=== PATIENT | female | born 1970 | race Caucasian/White ===

== ENCOUNTER 2023-11-28 14:00 | Outpatient (RCR) | payer BC, SELFPAY ==
--- NOTE | 2023-11-11 10:22 | URNOTE ---
Alex ([id number]) has been approved, 200mg x 5 doses. 11/10/2023-05/08/2024 Ref #[id number]
[2023-11-18 13:41] VITALS: BP 129/85; PULSE 104; RESP 16; TEMP 37.2; O2SAT 93
[2023-11-18] MEDS: IRON SUCROSE COMPLEX 200 MG in 0.9 % SODIUM CHLORIDE 100 ml 400 MG IVPB (13:52)
[2023-11-18] MEDS: SODIUM CHLORIDE 0.9 % (FLUSH) 10 ML SYRINGE IVF (14:00)
[2023-11-18] MEDS: 0.9 % SODIUM CHLORIDE 250 ml IV (14:00)
[2023-11-18 14:23] VITALS: BP 110/77; PULSE 90; RESP 16; TEMP 37.6; O2SAT 94
[2023-11-18 15:04] VITALS: BP 130/86; PULSE 75; RESP 16; TEMP 36.1; O2SAT 99
[2023-11-20 13:00] VITALS: BP 122/75; PULSE 78; RESP 16; TEMP 36.8; O2SAT 98
[2023-11-20 13:54] VITALS: BP 110/73; PULSE 96; RESP 16; TEMP 36; O2SAT 91
[2023-11-20] MEDS: 0.9 % SODIUM CHLORIDE 250 ml IV (13:59)
[2023-11-20] MEDS: SODIUM CHLORIDE 0.9 % (FLUSH) 10 ML SYRINGE IVF (13:59)
[2023-11-20] MEDS: IRON SUCROSE COMPLEX 200 MG in 0.9 % SODIUM CHLORIDE 100 ml 440 MG IVPB (14:09)
[2023-11-20 14:31] VITALS: BP 117/72; PULSE 85; RESP 12; O2SAT 96
[2023-11-24 14:04] VITALS: BP 118/77; PULSE 80; RESP 16; TEMP 36.3; O2SAT 98
[2023-11-24] MEDS: SODIUM CHLORIDE 0.9 % (FLUSH) 10 ML SYRINGE IVF (14:41)
[2023-11-24] MEDS: IRON SUCROSE COMPLEX 200 MG in 0.9 % SODIUM CHLORIDE 100 ml 440 MG IVPB (14:41)
[2023-11-24] MEDS: 0.9 % SODIUM CHLORIDE 250 ml IV (14:41)
[2023-11-24 15:22] VITALS: BP 114/75; PULSE 71; RESP 16; TEMP 37.1; O2SAT 99
[2023-11-26 14:13] VITALS: BP 117/74; PULSE 98; RESP 16; TEMP 36.2; O2SAT 98
[2023-11-26] MEDS: IRON SUCROSE COMPLEX 200 MG in 0.9 % SODIUM CHLORIDE 100 ml 440 MG IVPB (14:35)
[2023-11-26] MEDS: SODIUM CHLORIDE 0.9 % (FLUSH) 10 ML SYRINGE IVF (14:35)
[2023-11-26] MEDS: 0.9 % SODIUM CHLORIDE 250 ml IV (14:35)
[2023-11-28 14:21] VITALS: BP 115/76; PULSE 84; RESP 16; TEMP 36.7; O2SAT 99
[2023-11-28] MEDS: SODIUM CHLORIDE 0.9 % (FLUSH) 10 ML SYRINGE IVF (14:30)
[2023-11-28] MEDS: IRON SUCROSE COMPLEX 200 MG in 0.9 % SODIUM CHLORIDE 100 ml 440 MG IVPB (14:30)
[2023-11-28] MEDS: 0.9 % SODIUM CHLORIDE 250 ml IV (14:30)
[2023-11-28 14:55] VITALS: BP 112/73
[2023-11-28 15:28] VITALS: BP 116/72; PULSE 73
== END 2024-05-16 23:59 | disposition home or self-care (01) ==
LOC: CCIC 14:00
PROVIDERS: PCP Family Medicine; Visit Provider Clinical Nurse Specialist
DX: D50.9 Iron deficiency anemia, unspecified (principal)
CPT/HCPCS: 96365; 96374; J1756; J7050

== ENCOUNTER 2024-07-17 16:25 | Emergency (ER) | payer BC, SELFPAY ==
[2024-07-17] VITALS (34 sets, daily range): BP systolic 102–144; BP diastolic 67–86; PULSE 59–89; RESP 0–28; TEMP 36.3; O2SAT 96–100; BMI 36.6
--- NOTE | 2024-07-17 16:54 | ED_ITS ---
HPI - General Adult General Date Seen: 07/17/24 Chief complaint: Unspecified Complaint, Adult Stated complaint: Medication reaction Time Seen by Provider: 07/17/24 16:46 History of Present Illness HPI narrative: 54 yo F presenting to the emergency department today for evaluation of chest tightness, shortness of breath, nausea, and chest pain. She has no known history of coronary disease. She does have history of gastric bypass and she is on medications for stomach acid (sounds like a PPI and 1 other medications. She was recently given a prescription by her doctor for some nasal sprays for seasonal allergies. They include a Stelazine and fluticasone. She she used her nasal sprays for the 1st time this afternoon about 130 and about 20 minutes later started having symptoms of discomfort and squeezing in her chest that goes away from the neck down to her xiphoid process. No pain in the back. She was nauseous and sweaty. She vomited once (nonbloody). She has ongoing chest tightness. Related Data Home Medications ?Medication ?Instructions ?Recorded ?Confirmed cyanocobalamin (vitamin B-12) 2,000 mcg PO DAILY 11/18/23 03/12/24 1,000 mcg capsule cyclobenzaprine 10 mg tablet 10 mg PO QPM PRN muscle spasm 11/18/23 03/12/24 ergocalciferol (vitamin D2) 1,250 1,250 mcg PO 2XW 11/18/23 03/12/24 mcg (50,000 unit) capsule lorazepam 0.5 mg tablet 0.5 mg PO Q8H PRN anxiety 11/18/23 03/12/24 mirtazapine 7.5 mg tablet 7.5 mg PO QPM 11/18/23 03/12/24 misoprostol 200 mcg tablet 200 mcg PO QID 03/12/24 03/12/24 pantoprazole 40 mg tablet,delayed 40 mg PO BID 03/12/24 03/12/24 release temazepam 15 mg capsule 15 mg PO QPM PRN insomnia 07/14/24 07/14/24 Allergies Allergy/AdvReac Type Severity Reaction Status Date / Time azelastine Allergy Intermediate Chest Pain Verified 07/17/24 16:45 fluticasone Allergy Intermediate Chest Pain Verified 07/17/24 16:45 doxycycline Allergy Unknown Vomiting Verified 07/14/24 07:57 latex Allergy Unknown Rash Verified 07/14/24 07:57 ibuprofen Allergy GI bleeding Verified 07/14/24 07:57 nickel Allergy Rash Verified 07/14/24 07:57 ragweed pollen Allergy Verified 07/14/24 07:57 Saccharomyces boulardii Allergy Verified 07/14/24 07:57 Dust mites Allergy Uncoded 07/14/24 07:57 PFSH PFS Medical History Gastric ulcer ?K25.9 - Gastric ulcer, unspecified as acute or chronic, without hemorrhage or perforation (ICD-10) Surgical History History of eye surgery ?Z98.890 - Other specified postprocedural states (ICD-10) Status post urinary system surgery ?Z98.890 - Other specified postprocedural states (ICD-10) History of endometrial ablation ?Z98.890 - Other specified postprocedural states (ICD-10) Hx of cholecystectomy ?Z90.49 - Acquired absence of other specified parts of digestive tract (ICD- 10) H/O gastric bypass ?Z98.84 - Bariatric surgery status (ICD-10) History of esophagogastroduodenoscopy (EGD) ?Z98.890 - Other specified postprocedural states (ICD-10) Family History Mother Breast cancer Father Dementia Heart failure Sister High blood pressure Obesity High cholesterol Brother High cholesterol High blood pressure Obesity Social History Narrative: , enjoys gardening in the summer months Smoking Status: Never smoker How often do you have a drink containing alcohol: never AUDIT-C Alcohol total score: 0 Non-prescribed substance use: denies use Are you now , , , , never or living with a partner: Social isolation score (0-1 are the most socially isolated patients): 1 Exam Narrative: Exam Narrative: Constitutional: Appears well-developed and well-nourished. But very anxious and tremulous. Eyes are closed and slow to respond to some questions I think due to anxiety. Son attentively at her side. HENT: Head: Atraumatic. Nose: Nose normal. Mouth/Throat: Oral mucosa is clear and moist. no trismus. Pharynx normal. Tonsils symmetric. No tonsillar enlargement, erythema, or exudate. Eyes: Conjunctivae normal. EOM normal. Pupils equal, round, and reactive to light. No scleral icterus. Neck: Normal range of motion. Neck supple. No tracheal deviation present. No JVD Cardiovascular: Normal rate, regular rhythm. No gallop. No friction rub. No murmur heard. Symmetric radial artery pulses Pulmonary/Chest: Effort normal. No stridor. No respiratory distress. No wheezes. No rales. No rhonchi . No tenderness. Abdominal: Soft.No distension. No mass. No tenderness. No rebound. No guarding. Musculoskeletal: RUE: Normal range of motion. No tenderness. No deformity LUE: Normal range of motion. No tenderness. No deformity RLE: Normal range of motion. No edema. No tenderness. No deformity LLE: Normal range of motion. No edema. No tenderness. No deformity Neurological: Alert and oriented to person, place, and time. Normal strength. CN II-VII intact. No sensory deficit. GCS eye subscore is 4. GCS verbal subscore is 5. GCS motor subscore is 6. Normal coordination Skin: Skin is warm and dry. No rash noted. No pallor. Normal capillary refill. Psychiatric: Normal mood. Anxious Const: Vital Signs, click to edit/add: Vital Signs - 24 hr 07/17/24 16:38 07/17/24 17:02 07/17/24 17:03 Temperature 97.4 F L Pulse Rate 82 Pulse Rate [Pulse Oximeter] 76 Respiratory Rate 24 18 19 Blood Pressure 144/84 H Blood Pressure [Ri ght Upper Arm] 131/85 Pulse Oximetry 100 99 Oxygen Delivery Me thod Room Air Room Air 07/17/24 17:12 07/17/24 17:15 07/17/24 17:16 Temperature Pulse Rate 80 76 74 Pulse Rate [Pulse Oximeter] Respiratory Rate 21 24 14 Blood Pressure 114/83 135/85 Blood Pressure [Ri ght Upper Arm] Pulse Oximetry 99 97 98 Oxygen Delivery Me thod 07/17/24 17:26 07/17/24 17:30 07/17/24 17:31 Temperature Pulse Rate 78 75 89 Pulse Rate [Pulse Oximeter] Respiratory Rate 10 L 16 14 Blood Pressure 127/84 124/70 Blood Pressure [Ri ght Upper Arm] Pulse Oximetry 98 98 98 Oxygen Delivery Me thod 07/17/24 17:35 07/17/24 17:38 07/17/24 17:41 Temperature Pulse Rate 70 74 78 Pulse Rate [Pulse Oximeter] Respiratory Rate 9 L 15 11 L Blood Pressure 117/86 113/73 107/68 Blood Pressure [Ri ght Upper Arm] Pulse Oximetry 98 96 96 Oxygen Delivery Me thod 07/17/24 17:45 07/17/24 17:46 07/17/24 17:51 Temperature Pulse Rate 65 67 61 Pulse Rate [Pulse Oximeter] Respiratory Rate 7 L 23 16 Blood Pressure 102/75 106/82 Blood Pressure [Ri ght Upper Arm] Pulse Oximetry 97 99 97 Oxygen Delivery Me thod Room Air 07/17/24 17:52 07/17/24 17:56 07/17/24 18:00 Temperature Pulse Rate 61 61 59 L Pulse Rate [Pulse Oximeter] Respiratory Rate 18 20 8 L Blood Pressure 105/79 Blood Pressure [Ri ght Upper Arm] Pulse Oximetry 97 100 99 Oxygen Delivery Me thod 07/17/24 18:01 07/17/24 18:15 07/17/24 18:16 Temperature Pulse Rate 65 69 Pulse Rate [Pulse Oximeter] Respiratory Rate 10 L 15 13 Blood Pressure 114/74 114/81 Blood Pressure [Ri ght Upper Arm] Pulse Oximetry 100 99 Oxygen Delivery Me thod Room Air 07/17/24 18:30 07/17/24 18:31 07/17/24 18:37 Temperature Pulse Rate 68 75 70 Pulse Rate [Pulse Oximeter] Respiratory Rate 16 22 12 Blood Pressure 113/77 112/82 Blood Pressure [Ri ght Upper Arm] Pulse Oximetry 99 99 98 Oxygen Delivery Me thod 07/17/24 18:45 07/17/24 18:46 07/17/24 19:00 Temperature Pulse Rate 67 66 67 Pulse Rate [Pulse Oximeter] Respiratory Rate 0 L 25 H 0 L Blood Pressure 106/72 Blood Pressure [Ri ght Upper Arm] Pulse Oximetry 97 98 97 Oxygen Delivery Me thod 07/17/24 19:01 07/17/24 19:08 07/17/24 19:15 Temperature Pulse Rate 69 82 68 Pulse Rate [Pulse Oximeter] Respiratory Rate 7 L 28 H 9 L Blood Pressure 108/82 121/75 Blood Pressure [Ri ght Upper Arm] Pulse Oximetry 98 99 100 Oxygen Delivery Me thod 07/17/24 19:16 07/17/24 19:17 07/17/24 19:30 Temperature Pulse Rate 62 69 69 Pulse Rate [Pulse Oximeter] Respiratory Rate 13 6 L 14 Blood Pressure 112/67 Blood Pressure [Ri ght Upper Arm] Pulse Oximetry 99 98 100 Oxygen Delivery Me thod Room Air 07/17/24 19:31 Temperature Pulse Rate 64 Pulse Rate [Pulse Oximeter] Respiratory Rate 17 Blood Pressure 117/86 Blood Pressure [Ri ght Upper Arm] Pulse Oximetry 100 Oxygen Delivery Me thod Course Course ED Course: Recheck-patient's EKG markedly abnormal showing ST elevations in the anterolateral and in the inferior regions. No reciprocal changes. Patient is having chest pain. Also some underlay of anxiety. Room to to ER room 8. We initiated a call to [facility] at to do a STEMI quality assurance/r&d lab technician activation After sublingual nitroglycerin pain came down from a 7-8/10 down to a 3/10. Repeat EKG shows resolution of previous diffuse ST segment elevations. Patient feeling better. Much less anxious. Blood pressure remained stable slightly hypertensive. . Received a phone call back from cardiology. The quality assurance/r&d lab technician at [facility] is clear apparently close this weekend so we are diverted to quality assurance/r&d lab technician at [facility]. Received a phone call back from Dr. Alec Olson (same name, different doctor). We reviewed the patient's presentation her initial EKG findings showing ST elevation in the anteroseptal leads, lateral leads, and inferior lead without any clear reciprocal change and subsequent resolution of the ST elevations after nitroglycerin. Patient really does not have any other traditional risk factors for coronary disease. Troponin is abnormal at 0.35. With concern for this patient based on her presenting symptoms an EKG but at this point with resolving ST elevations will not pursue a level 1 quality assurance/r&d lab technician activation. Instead will get the patient admitted at [facility]. Dr. Olson will defer the acceptance to the hospitalist and will have Cardiology consult when she arrives. Discussed with hospitalist, Dr. Fernandes. He accepts the patient in transfer She patient was given aspirin. Started on heparin drip after 3 sublingual nitro pain count eye to a 3/10. Started on nitro drip. She had a little bit of recurrence of pain while on the nitro drip. Third EKG was obtained and showed no recurring ST elevation. 2 mg morphine for her pain was mild anxiety. Patient remains otherwise hemodynamically stable. Patient was assigned a bed in the ICU at [facility] at 7:05 p.m.. Nurse to nurse report was called and patient was transferred by EMS. Vital Signs Vital signs: Initial Vital Signs Temperature 97.4 F L 07/17/24 16:38 Temperature Source Temporal Artery Scan 07/17/24 16:38 Pulse Rate 76 07/17/24 16:38 Respiratory Rate 24 07/17/24 16:38 Blood Pressure 131/85 07/17/24 16:38 Blood Pressure Mean 100 07/17/24 16:38 Blood Pressure Position Sitting 07/17/24 16:38 Pulse Oximetry 100 07/17/24 16:38 Oxygen Delivery Method Room Air 07/17/24 16:38 Vital Signs Temperature 97.4 F L 07/17/24 16:38 Pulse Rate 76 07/17/24 16:38 Respiratory Rate 24 07/17/24 16:38 Blood Pressure 131/85 07/17/24 16:38 Pulse Oximetry 100 07/17/24 16:38 Oxygen Delivery Method Room Air 07/17/24 16:38 Temperature 97.4 F L 07/17/24 16:38 Pulse Rate 64 07/17/24 19:31 Respiratory Rate 17 07/17/24 19:31 Blood Pressure 117/86 07/17/24 19:31 Pulse Oximetry 100 07/17/24 19:31 Oxygen Delivery Method Room Air 07/17/24 19:16 Medications Administered Medications: Generic Name Dose Route Start Last Admin Trade Name Freq PRN Reason Stop Dose Admin Heparin Sodium/Dextrose 25,000 unit in 500 mls @ 0 mls/hr 07/17/24 17:30 07/17/24 17:30 Heparin IV 1,000 unit/hr .Q0M RAQUEL 20 mls/hr Administration Protocol Per Protocol Nitroglycerin/Dextrose 25,000 mcg in 250 mls @ 3 mls/hr 07/17/24 18:13 07/17/24 18:19 Nitroglycerin/Dextrose IVPB 5 mcg/min .TITRATE PRN 3 mls/hr Administration Protocol 5 MCG/MIN Morphine Sulfate 2 mg 07/17/24 18:44 07/17/24 19:02 Morphine 2 Mg/Ml Inj IVP 2 mg Q2H PRN Administration Nitroglycerin 0.4 mg 07/17/24 16:55 07/17/24 17:06 Nitroglycerin 0.4 Mg Tab.Subl SUBLINGUAL 0.4 mg Q5M PRN Administration Discontinued Medications Generic Name Dose Route Start Last Admin Trade Name Freq PRN Reason Stop Dose Admin Aspirin 324 mg 07/17/24 16:55 07/17/24 17:06 Aspirin 81 Mg Tab.Chew PO 07/17/24 16:56 324 mg ONCE ONE Administration Heparin Sodium (Porcine) 4,000 unit 07/17/24 17:16 07/17/24 17:22 Heparin 5,000 Unit/0.5 Ml Inj IVP 07/17/24 17:17 4,000 unit ONCE ONE Administration Ondansetron HCl 4 mg 07/17/24 18:44 07/17/24 19:02 Ondansetron 2 Mg/Ml Inj IVP 07/17/24 18:45 4 mg ONCE ONE Administration Medical Decision Making MDM Narrative Medical decision making narrative: This patient presents to the ER today for evaluation of chest pain nausea, shortness of breath. Differential was broad. No evidence of palpitations, syncope or other cardiac dysrhythmia. We considered possible ACS. Initially EKG was obtained was very concerning with ST elevations in the anterior and lateral leads, leads V2-V6, as well as the inferior leads, 2, 3, AVF. She was having 7/10 chest discomfort. We activated a STEMI alert with plans to transfer emergently to the quality assurance/r&d lab technician at [facility]. After sublingual nitroglycerin pain improved down to a 4/10 and follow-up EKG showed resolution of her ST segment elevations. Unfortunately, the quality assurance/r&d lab technician at [place] is close this weekend. Therefore the a line access center diverted this to the quality assurance/r&d lab technician at [facility]. Discussed with cardiology for [facility], Dr. Olson. We reviewed the patient's presenting symptoms, initial EKG, 2nd EKG. At this point operating teres that she may be having an episode of coronary vasospasm triggered by her nasal spray (astelazine). With improving pain in resolving EKG ST segment findings, Dr. Olson does not feel the patient needs to go emergently to the quality assurance/r&d lab technician. However if she has worsening pain again, develops hemodynamic instability, or has worsening ST segment elevations, he would immediately take patient to quality assurance/r&d lab technician. He recommends that we get the patient admitted since she had significant EKG findings and has had normal troponin 0.35. He recommends admission to the hospitalist service at [facility]. Subsequently discussed with hospitalist, Dr. Thompson, who accepts the patient. At about 615 she had a little bit of increase in chest pain. Thirty EKG was obtained and showed no new ST segment elevation or involving ischemia. Differential would also include pericarditis or myocarditis. She is hemodynamically stable. Does not have any recent URI or symptoms clearly indicate pericarditis. Chest x-ray shows no evidence for pneumonia, pneumothorax, pulmonary edema, pleural effusion, rib fracture, cardiomegaly. Mediastinum is normal on the x-ray. The patient has no ripping or tearing pain through to the back and has symmetric pulses on exam, no other acute neuro findings so I doubt aortic dissection. Risk of radiation and contrast exposure would outweigh the benefit of CT angiogram. We considered PE for this patient. Overall low risk. At this point the risk of radiation exposure and CT contrast dye load would outweigh the benefit especially for anticipate she may likely need a catheterization. Has been initiated on heparin bolus and drip for possible acute coronary syndrome already. No wheezing or bronchospasm to suggest COPD/asthma. No signs of chest wall cellulitis, shingles, injury. Discussed the EKG findings initially with the patient and her son and subsequently with the patient and her . Discussed the recommendations for Cardiology. Patient wonders if we are being to alarm missed about her symptoms and wonders if it would be safe to just go home. I advised that she definitely should be hospitalized and that presentation is very concerning, although we hope that this may turning lathe tender to have been a isolated episode of coronary vasospasm.. Lab Data Labs: Lab Results 07/17/24 07/17/24 Range/Units 16:55 17:05 WBC 10.46 (4.50-11.00) K/uL RBC 4.96 (4.00-5.20) m/uL Hgb 14.4 (12.0-16.0) gm/dL Hct 43.2 (33.0-51.0) % MCV 87 (80-100) fL MCH 29 (26-34) pg MCHC 33 (32-36) gm/dL RDW Coeff of [place] 11.8 (11.5-15.5) % Plt Count 230 (140-440) K/uL Neut % (Auto) 76.3 H (42.0-72.0) % Lymph % (Auto) 14.3 L (20-44) % Levy % (Auto) 8.4 (0.0-11.0) % Eos % (Auto) 0.6 (0.0-7.0) % Baso % (Auto) 0.3 (0.0-3.0) % Neut # (Auto) 8.00 H (1.7-7.0) K/uL Lymph # (Auto) 1.50 (0.90-2.90) K/uL Levy # (Auto) 0.90 (0.00-0.90) K/UL Eos # (Auto) 0.06 (0.00-0.50) K/uL Baso # (Auto) 0.03 (0.00-0.30) K/uL Abs Immat Gran (auto) 0.01 (0.00-0.30) K/uL Imm/Tot Granulo (auto) 0.1 % INR 0.90 L (0.91-1.10) APTT 24 (23-33) Seconds Sodium 136 (135-149) mmol/L Potassium 3.5 L (3.6-5.1) mmol/L Chloride 102 (96-114) mmol/L Carbon Dioxide 24 (20-32) mmol/L Anion Gap 10 (7-15) mEq/L BUN 10 (7-30) mg/dL Creatinine 0.8 (0.5-1.5) mg/dL Estimated Creat Clear 71.50 Estimated GFR 87 ml/min Glucose 111 (60-115) mg/dL Calcium 9.2 (8.4-10.6) mg/dL POC Troponin I 0.35 H (0.01-0.04) ng/ml ECG Data Attestation: I personally reviewed and interpreted this ECG as follows: Interpretation: Normal sinus rhythm Rate: 66 DE: 140 QRS axis: Normal QRS axis. No definite Q-waves. ST segment/T wave: Significant ST elevations in leads V2, V3, V4, V5, V6, AVF, 2, 3. Anterior, anterolateral, inferior ST elevation. No reciprocal changes. QTc: 436 2nd EKG at 5:18 p.m. Normal sinus rhythm with sinus arrhythmia Rate: 72 DE: 132 QRS axis: Normal axis. ST segment/T wave: Previous ST elevations in leads V2-V6 and 2, 3, AVF are resolved. QTc: 444 Third EKG at 6:13 p.m. (had slight increase in chest pain) Normal sinus rhythm Rate: 65 DE: 134 QRS axis: Normal axis ST segment/T wave: Nonspecific T-wave flattening throughout. No recurring ST segment elevation. Looks pretty similar to the EKG from 518 QTc: 440 Critical Care Time Critical Care Time Critical Care Time: Yes Attestation: The patient required my highest level preparedness to intervene emergently and I personally spent this critical care time directly and personally managing the patient. This critical care time included: Obtaining a history; Examining the patient; Pulse oximetry; Ordering and reviewing of studies; Arranging urgent treatment with development of a management plan; Evaluation of patients response to treatment; Frequent reassessment discussions with other providers. This critical care time was performed to assess and manage the high probability of imminent life-threatening deterioration that could result in multiorgan failure. It was exclusive of separate billable procedures and treating other patients and teaching time. Total Critical Care Time in Minutes: 35 Discharge Plan Discharge Clinical Impression: Chest pain, Elevated troponin, Non-ST elevation CT (NSTEMI) Patient Disposition: Xfer Other Prescriptions: No Action pantoprazole 40 mg tablet,delayed release (DR/EC) 40 mg PO BID misoprostol 200 mcg tablet 200 mcg PO QID temazepam 15 mg capsule 15 mg PO QPM PRN (Reason: insomnia) cyclobenzaprine 10 mg tablet 10 mg PO QPM PRN (Reason: muscle spasm) lorazepam 0.5 mg tablet 0.5 mg PO Q8H PRN (Reason: anxiety) ergocalciferol (vitamin D2) 1,250 mcg (50,000 unit) capsule 1,250 mcg PO 2XW mirtazapine 7.5 mg tablet 7.5 mg PO QPM cyanocobalamin (vitamin B-12) 1,000 mcg capsule 2,000 mcg PO DAILY Stand Alone Forms: [facility] Info Instructions
--- NOTE | 2024-07-17 16:56 | CRLHL7_ITS ---
For Patients: As a result of the Century Cures Act, medical imaging exams and procedure reports are released immediately into your electronic medical record. You may view this report before your referring provider. If you have questions, please contact your health care provider. INDICATION: Chest pain. TECHNIQUE: Chest 1 view. COMPARISON: None FINDINGS: Cardiovascular and mediastinum: Heart size and vasculature are normal in caliber and appearance. Mediastinum is within normal limits. Lungs and pleural space: Lungs are clear. No sign of infiltrate or mass. No sign of pleural effusion. No pneumothorax. Bones and soft tissues: No significant findings. IMPRESSION: Unremarkable chest. Dictated by Primitivo Glover MD @ 07/17/2024 6:07:00 PM (Electronically Signed)
[2024-07-17] MEDS: ASPIRIN 81 MG TAB.CHEW 324 MG PO (17:06)
[2024-07-17] MEDS: NITROGLYCERIN 0.4 MG TAB.SUBL SUBLINGUAL (17:06)
[2024-07-17 17:14] LABS: Basophils Absolute Auto 0.03 K/uL (0.00-0.30); Basophils Percent Auto 0.3 % (0.0-3.0); Eosinophils Absolute Auto 0.06 K/uL (0.00-0.50); Eosinophils Percent Auto 0.6 % (0.0-7.0); Hematocrit 43.2 % (33.0-51.0); Hemoglobin* 14.4 gm/dL (12.0-16.0); Immature Granulocytes Abs Auto 0.01 K/uL (0.00-0.30); Immature Granulocytes Pct Auto 0.1 %; Lymphocytes Percent Auto 14.3 % (20-44); Mean Corpuscular HGB Conc 33 gm/dL (32-36); Mean Corpuscular Hemoglobin 29 pg (26-34); Mean Corpuscular Volume 87 fL (80-100); Monocytes Percent Auto 8.4 % (0.0-11.0); Neutrophils Percent Auto 76.3 % (42.0-72.0); Platelet Count* 230 K/uL (140-440); RDW Coefficient of Variation % 11.8 % (11.5-15.5); Red Blood Count 4.96 m/uL (4.00-5.20); White Blood Count* 10.46 K/uL (4.50-11.00)
[2024-07-17 17:16] LABS: Slide Review Reflex No
[2024-07-17] MEDS: HEPARIN 5,000 UNIT/0.5 ML INJ 4000 UNIT IVP (17:22)
[2024-07-17 17:26] LABS: Chloride* 102 mmol/L (96-114)
[2024-07-17 17:27] LABS: Potassium* 3.5 mmol/L (3.6-5.1); Sodium* 136 mmol/L (135-149)
[2024-07-17 17:30] LABS: Anion Gap 10 mEq/L (7-15); Blood Urea Nitrogen* 10 mg/dL (7-30); Calcium* 9.2 mg/dL (8.4-10.6); Carbon Dioxide* 24 mmol/L (20-32); Creatinine* 0.8 mg/dL (0.5-1.5); Estimated Glomerular Filt Rate 87 ml/min; Glucose* 111 mg/dL (60-115)
[2024-07-17] MEDS: HEPARIN 25,000 UNIT/500 ML BAG 20 UNIT IV (17:30)
[2024-07-17 18:11] LABS: Partial Thromboplastin Time* 24 Seconds (23-33); Prothrombin Time 12.9 Seconds
[2024-07-17] MEDS: NITROGLYCERIN/DEXTROSE 25,000 MCG/250 ML BOTTLE 3 MCG IVPB (18:16)
[2024-07-17 18:24] LABS: Troponin, Point-of-Care* 0.35 ng/ml (0.01-0.04)
[2024-07-17] MEDS: ONDANSETRON 2 MG/ML inj 4 MG IVP (19:02)
[2024-07-17] MEDS: MORPHINE 2 MG/ML inj IVP (19:02)
== END 2024-07-17 19:57 | disposition other institution (70) ==
PROVIDERS: Student in an Organized Health Care Education/Training Program; Emergency Provider Emergency Medicine
DX: R07.89 Other chest pain (principal); I21.4 Non-ST elevation (NSTEMI) myocardial infarction; R79.89 Other specified abnormal findings of blood chemistry
CPT/HCPCS: 36415; 71045; 80048; 84484; 85025; 85027; 85610; 85730; 93005; 96365; 96375; 99285; 99291; A9270; J1644; J2270; J2405

== ENCOUNTER 2024-07-17 19:41 | Outpatient (CLI) | payer BC, SELFPAY | END 2024-07-17 19:42 | disposition home or self-care (01) | LOC: AMB 07-19 12:04 | PROVIDERS: Visit Provider Student in an Organized Health Care Education/Training Program | DX: I21.4 Non-ST elevation (NSTEMI) myocardial infarction (principal); R79.89 Other specified abnormal findings of blood chemistry | CPT/HCPCS: A0425; A0434 ==

== ENCOUNTER 2024-07-22 10:21 | Outpatient (CLI) | payer BC, SELFPAY | END 2024-07-22 10:22 | disposition home or self-care (01) | LOC: NFLDREF 10:22 | PROVIDERS: PCP Registered Nurse; Visit Provider Registered Nurse | DX: I21.4 Non-ST elevation (NSTEMI) myocardial infarction (principal) | CPT/HCPCS: 80048 ==

== ENCOUNTER 2024-09-16 16:11 | Outpatient (CLI) | payer BC, SELFPAY | END 2024-09-16 16:12 | disposition home or self-care (01) | PROVIDERS: PCP Family Medicine; Visit Provider Family Medicine | DX: I25.10 Atherosclerotic heart disease of native coronary artery without angina pectoris (principal); K25.9 Gastric ulcer, unspecified as acute or chronic, without hemorrhage or perforation; K21.9 Gastro-esophageal reflux disease without esophagitis; Z98.84 Bariatric surgery status; Z95.5 Presence of coronary angioplasty implant and graft | CPT/HCPCS: 80053; 80061; 82248; 82306; 82607; 82728; 84443 ==

== ENCOUNTER 2024-10-21 14:53 | Outpatient (CLI) | payer BC, SELFPAY ==
--- NOTE | 2024-10-21 15:00 | CRLHL7_ITS ---
For Patients: As a result of the Century Cures Act, medical imaging exams and procedure reports are released immediately into your electronic medical record. You may view this report before your referring provider. If you have questions, please contact your health care provider. INDICATION: BILATERAL SCREENING MAMMOGRAM, ASYMPTOMATIC 54 Y/O FEMALE COMPARISON: 07/16/2021, 06/03/2020, 10/24/2018 TECHNIQUE: Digital mammogram in CC and MLO projections including computer-aided detection (CAD) and tomosynthesis. BREAST COMPOSITION: There are scattered areas of fibroglandular density. FINDINGS: No suspicious findings. ASSESSMENT: BI-RADS 1 Negative RECOMMENDATION: Annual screening mammogram. A lay language report of this examination will be provided to the patient. Dictated by: Kalyan Siegel MD @ 10/25/2024 12:29:24 (Electronically Signed)
== END 2024-10-21 14:54 | disposition home or self-care (01) ==
LOC: MAMMO 14:54
PROVIDERS: PCP Family Medicine; Visit Provider Registered Nurse
DX: Z12.31 Encounter for screening mammogram for malignant neoplasm of breast (principal)
CPT/HCPCS: 77063; 77067